=== PATIENT | female | born 1965 | race Caucasian/White ===

== ENCOUNTER → 2019-01-30 | Outpatient (CLI) | payer BC ==
[~2019-01-30] MED LIST: AMOCLA875 PO; HYDACE5 PO; HYDCHL12.5 PO; LORA2 PO; LOSHYD PO; MECL25 PO; METO25ER PO; METO50ER PO; NAPR220 PO; ONDA8ODT MM; TRAM50
== END ==
LOC: LAB SHORT 13:08 → LAB 13:08
DX: N39.0 Urinary tract infection, site not specified (principal)
CPT/HCPCS: 87086; 87147

== ENCOUNTER 2019-11-03 08:37 | Day surgery (SDC) | payer BC ==
[~2019-11-03] VITALS: Ht 157.5 cm; Wt 86.6 kg
[2019-11-03] MEDS ORDERED: Phentermine HCl15 MG (08:54)
== END 2019-11-03 10:31 | disposition home or self-care (01) ==
LOC: ORSCSDS 08:37
PROVIDERS: Anesthesiology
PROC: 3E0R33Z Introduction of Anti-inflammatory into Spinal Canal, Percutaneous Approach (ICD-10-PCS; principal; 2019-11-03 10:00)
DX: M51.16 Intervertebral disc disorders with radiculopathy, lumbar region (principal); M43.16 Spondylolisthesis, lumbar region; I10 Essential (primary) hypertension; F32.9 Major depressive disorder, single episode, unspecified; E66.01 Morbid (severe) obesity due to excess calories; Z68.35 Body mass index [BMI] 35.0-35.9, adult; F17.210 Nicotine dependence, cigarettes, uncomplicated; Z79.899 Other long term (current) drug therapy
CPT/HCPCS: J1040

== ENCOUNTER 2019-11-20 11:11 | Emergency (ER) | payer OTHER, BC ==
[~2019-11-20] VITALS: Ht 157.5 cm; Wt 88.5 kg
[~2019-11-20 11:11] MED LIST changes: +Phentermine HCl15 MG
[2019-11-20] MEDS ORDERED: Aspir 8181 MG PO (11:26)
[2019-11-20] MEDS ORDERED: Robaxin-750750 MG PO (13:11)
== END 2019-11-20 13:54 | disposition home or self-care (01) ==
LOC: ER 11:11
DX: S50.11XA Contusion of right forearm, initial encounter (principal); R07.81 Pleurodynia; I10 Essential (primary) hypertension; Z79.82 Long term (current) use of aspirin; F17.210 Nicotine dependence, cigarettes, uncomplicated; V89.2XXA Person injured in unspecified motor-vehicle accident, traffic, initial encounter
CPT/HCPCS: 71046; 72040; 73090; 99283-25

== ENCOUNTER 2021-02-01 10:52 | Day surgery (SDC) | payer BC ==
[~2021-02-01] VITALS: Ht 157.5 cm; Wt 93.3 kg
[~2021-02-01 10:52] MED LIST changes: +Aspir 8181 MG PO; +Robaxin-750750 MG PO
[2021-02-01] MEDS ORDERED: METO50 PO (11:48)
[2021-02-01] MEDS ORDERED: DULO60 PO (11:49)
== END 2021-02-01 12:35 | disposition home or self-care (01) ==
LOC: ORSCSDS 10:52
PROVIDERS: Anesthesiology
PROC: 3E0R33Z Introduction of Anti-inflammatory into Spinal Canal, Percutaneous Approach (ICD-10-PCS; principal; 2021-02-01 12:30)
PROC: 3E0R3BZ Introduction of Anesthetic Agent into Spinal Canal, Percutaneous Approach (ICD-10-PCS; principal; 2021-02-01 12:30)
DX: M54.16 Radiculopathy, lumbar region (principal); M51.26 Other intervertebral disc displacement, lumbar region; F17.210 Nicotine dependence, cigarettes, uncomplicated; I10 Essential (primary) hypertension; Z79.899 Other long term (current) drug therapy; Z79.82 Long term (current) use of aspirin
CPT/HCPCS: J1040

== ENCOUNTER 2022-11-14 10:18 | Day surgery (SDC) | payer BC ==
[~2022-11-14] VITALS: Ht 157.5 cm; Wt 86.1 kg
[~2022-11-14 10:18] MED LIST changes: +DULO60 PO; +METO50 PO
[2022-11-14] MEDS ORDERED: TOPI25 PO (10:40)
== END 2022-11-14 11:26 | disposition home or self-care (01) ==
LOC: ORSCSDS 10:18
PROVIDERS: Anesthesiology
PROC: 3E0R33Z Introduction of Anti-inflammatory into Spinal Canal, Percutaneous Approach (ICD-10-PCS; principal; 2022-11-14 12:30)
PROC: 3E0R3BZ Introduction of Anesthetic Agent into Spinal Canal, Percutaneous Approach (ICD-10-PCS; principal; 2022-11-14 12:30)
DX: M51.16 Intervertebral disc disorders with radiculopathy, lumbar region (principal); F17.210 Nicotine dependence, cigarettes, uncomplicated; I10 Essential (primary) hypertension; Z87.891 Personal history of nicotine dependence; H81.09 Meniere's disease, unspecified ear; Z79.899 Other long term (current) drug therapy; Z79.82 Long term (current) use of aspirin
CPT/HCPCS: J1040